=== PATIENT | female | born 1990 | race Caucasian/White ===

== ENCOUNTER 2019-08-01 12:21 | Emergency (ER) | payer BC, SELFPAY ==
[2019-08-01 12:29] VITALS: BP 134/84; PULSE 104; RESP 14; TEMP 36.8; O2SAT 100
--- NOTE | 2019-08-01 12:40 | ED.GENADULT ---
HPI - General Adult General Chief complaint: Ear Stated complaint: ear pain Time Seen by Provider: 08/01/19 12:40 Source: patient and RN notes reviewed Mode of arrival: ambulatory Limitations: no limitations History of Present Illness HPI narrative: 29-year-old female presents with complaints of right ear otalgia for the past 3 days. Dawson, last 2 days ago without relief no other treatment. Nury says pain increases when she opens mouth and with laying on ear. Denies drainage, decrease hearing, or tinnitus. Denies injury to ear. Denies rhinorrhea and nasal congestion. Denies cough and chest congestion. No high fevers or chills. Denies nausea, vomiting, and dizziness. Carries denies being , LMP 07/10/19. The patient reports she have not been diagnosed with COVID-19. The patient reports she is not waiting for the results of a COVID-19 lab test. The patient reports she do not have fever, chills, weakness, fatigue, myalgia, or facial swelling. The patient reports she do not have a new or worsening cough or shortness of breath. Denies chest pain. The patient reports she do not have any rhinorrhea, congestion, sore throat, nausea, vomiting, abdominal pain, and diarrhea. Tolerating po intake well. Denies recent traveling. Denies concerns for COVID-19 or exposures been home since [id number] order except for essential household needs (is limited do to working outside of home) and return home. At this time, patient is not suspected of having COVID-19. Some parts of this dictation were generated by voice recognition software and may contain typographical and/or grammatical inaccuracies. Related Data Home Medications Medication Instructions Recorded Confirmed [id number]-vit K 1 tablet PO DAILY 08/01/19 08/01/19 [Adults Multivitamin] Allergies Allergy/AdvReac Type Severity Reaction Status Date / Time No Known Allergies Allergy Verified 08/01/19 12:36 Review of Systems Review of Systems: Narrative: CONSTITUTIONAL: Denies fever, chills, sweats. EYES: Denies visual changes, redness, discharge. ENT: Denies sore throat, ear drainage, decrease hearing, rhinorrhea, congestion. Complains of RT otalgia. CARDIOVASCULAR: Denies chest pain, palpitations, edema. RESPIRATORY: Denies dyspnea, wheezing, cough. GASTROINTESTINAL: Denies abdominal pain, nausea, vomiting, diarrhea. GENITOURINARY: Denies dysuria, hematuria, abnormal discharge. SKIN: Denies rash or itching. MUSCULOSKELETAL: Denies acute back pain, joint pain, or myalgia. NEUROLOGIC: Denies numbness or focal weakness. PSYCHIATRIC: Denies anxiety or depression. All systems reviewed & are unremarkable except as noted in HPI and below. PMFSH Past Medical History Medical History (Updated 08/01/19 @ 12:54 by ALEX Ardon) delivery delivered X2 Surgical History Surgical History (Updated 08/01/19 @ 12:51 by ALEX Ardon) H/O section History of tonsillectomy Family History Family History (Updated 08/01/19 @ 12:52 by ALEX Ardon) Father Alive and well Mother Hypertension Grandparent Hypertension Social History Social History (Updated 08/01/19 @ 12:53 by ALEX Ardon) Smoking status: Never smoker Second hand tobacco smoke exposure: No Alcohol intake: current Substance use: never Living arrangements: with family Occupation/Education: unemployed Gender identity (if verbalized by the patient): Female Comments At time of signature, I have reviewed and agree with nursing past medical, surgical, social, and family history. Please see nursing chart for further information. There is no relevant family history pertinent to the presenting complaint. Exam Narrative: Exam Narrative: GENERAL: This is a well-nourished, well-developed patient, in no apparent distress. Talks in full sentences and ambulates with steady gait without dyspnea HEAD: normoce
== END 2019-08-01 13:02 | disposition home or self-care (01) ==
PROVIDERS: Emergency Provider Nurse Practitioner Family; PCP Internal Medicine
DX: H65.01 Acute serous otitis media, right ear (principal)
CPT/HCPCS: 99213; G0463

== ENCOUNTER → 2020-12-07 08:22 | Outpatient (CLI) | payer BC, SELFPAY ==
--- NOTE | ~2020-12-07 | MR_ITS ---
EXAMINATION: MR abdomen wo/w con DATE: 12/07/2020 10:32 INDICATION: Benign neoplasm of liver. TECHNIQUE: Magnetic resonance imaging (MRI) of the abdomen was performed without and with 15 mL Multi Erin intravenous contrast. Sequences included coronal T2-weighted FS FSE, coronal and axial FS FIEST A, axial T2-weighted FSE, coronal LAVA-flex, axial STIR FSE, axial DWI, axial dual-echo T1-weighted F SPGR, and axial LAVA. Postcontrast sequences included coronal LAVA-flex and a time course of axial LA VA. COMPARISON: Abdomen MRI 02/21/2016, CT abdomen and pelvis 01/29/2016 FINDINGS: There is a 1.5 cm mass in right hepatic lobe with interrupted peripheral puddling of contrast, consis tent with a hemangioma. There are approximately 8 hyperenhancing liver masses measuring up to 2.5 cm. No washout. The 2.5 cm mass in right hepatic lobe previously measured 1.4 cm. A 0.9 cm mass in right hepatic lobe previously measured 1.6 cm. The gallbladder is normal. There is an 8 mm cyst in the spl een. The pancreas, adrenal glands, and right kidney are normal. There is a 10 mm cyst in left kidney. There are no dilated loops of bowel. There are no pathologically enlarged lymph nodes. There is no f ree intraperitoneal fluid. IMPRESSION: 1. Hyperenhancing liver masses, some of which have increased in size and some of which have decreased in size from 02/21/2016. These findings are most likely benign masses such as focal nodular hyperpla kennedy or hemangiomas. Reviewed, dictated and finalized at location A. IMPRESSION: 1. Hyperenhancing liver masses, some of which have increased in size and some o f which have decreased in size from 02/21/2016. These findings are most likely benign masses such as focal nodular hyperplasia or hemangiomas.
[2020-12-07 09:32] LABS: Estimated Glomerular Filt Rate > 60
== END ==
PROVIDERS: PCP Internal Medicine; Visit Provider Internal Medicine
DX: D13.4 Benign neoplasm of liver (principal)
CPT/HCPCS: 74183; A9577

== ENCOUNTER 2022-06-09 09:28 | Outpatient (CLI) | payer BC, SELFPAY ==
[2022-06-09 09:48] LABS: Basophils Absolute Auto 0.04 K/mm3 (0.00-0.10); Basophils Percent Auto 0.8 % (0.0-1.0); Hematocrit 41.8 % (35.0-49.0); Hemoglobin 13.6 g/dL (12.0-15.0); Immature Granulocyte Absolute 0.01 K/mm3 (0.00-0.00); Immature Granulocyte Percent A 0.2 % (0.0-0.0); Lymphocytes Absolute Auto 1.44 K/mm3 (1.10-4.50); Mean Corpuscular HGB Conc 32.5 g/dL (32.0-36.0); Mean Corpuscular Hemoglobin 28.9 pg (27.0-31.0); Mean Corpuscular Volume 88.9 fL (78.0-102.0); Mean Platelet Volume 11.3 fl (9.2-11.8); Monocytes Absolute Auto 0.47 K/mm3 (0.10-0.90); Monocytes Percent Auto 9.5 % (2.0-11.0); Neutrophils Absolute Auto 2.9 K/mm3 (1.7-7.2); Neutrophils Percent Auto 58.5 % (50.0-70.0); Platelet Count Result 215 K/mm3 (150-420); Red Cell Distribution Width 12.9 % (11.6-14.4)
[2022-06-09 09:49] LABS: Appearance Urine Clear (Clear); Bilirubin Urine Negative (Negative); Blood Urine 2+ (Negative); Color Urine Light Yellow (Yellow); Glucose Urine UA Negative (Negative); Ketones Urine Negative (Negative); Leukocyte Esterase Ur Trace LEU/UL (Negative); Nitrate Urine Negative (Negative); Protein Urine Negative (Negative); Urobilinogen Urine 0.2 mg/dL (0.2-1.0)
[2022-06-09 09:56] LABS: Add Urine Microscopic? YES; Bacteria Urine 1+ /hpf; Squamous Epithelial Cell Urine Moderate /hpf (Few); WBC Urine 0-3 /hpf (0-3)
[2022-06-09 10:21] LABS: Alanine Aminotransferase 32 U/L (14-59); Alkaline Phosphatase 57 U/L (46-116); Anion Gap 7 mmol/L (8-16); Aspartate Amino Transferase 19 U/L (15-37); Bilirubin,Total 0.6 mg/dL (0.00-1.00); Blood Urea Nitrogen 15 mg/dL (7-18); Carbon Dioxide 29 mmol/L (21-32); Chloride 103 mmol/L (98-108); Cholesterol 131 mg/dL (0-200); Estimated Glomerular Filt Rate > 60; Glucose 94 mg/dL (70-99); HDL Direct 70 mg/dL (40-60); LDL Cholesterol Calculated 55 mg/dL (<130); Osmolality Calculated 288 mOsm/kg (285-295); Potassium 4.4 mmol/L (3.5-5.1); Sodium 139 mmol/L (136-145); Thyroid Stimulating Hormone 0.95 uIU/mL (0.36-3.74); Total Protein 7.9 g/dL (6.4-8.2); Triglycerides 29 mg/dL (0-150)
== END 2022-06-09 09:29 | disposition home or self-care (01) ==
LOC: CHSLAB 09:29
PROVIDERS: PCP Internal Medicine; Visit Provider Internal Medicine
DX: E78.5 Hyperlipidemia, unspecified (principal); N39.0 Urinary tract infection, site not specified; Z00.00 Encounter for general adult medical examination without abnormal findings
CPT/HCPCS: 36415; 80053; 80061; 81001; 84443; 85025